=== PATIENT | female | born 1960 ===

== ENCOUNTER 2022-02-09 05:33 | Day surgery (SDC) | payer OTHER ==
[~2022-02-09 05:33] MED LIST: ATACAND16 MG PO; PEPCID AC20 MG PO; SINGULAIR10 MG PO; VITAMIN C PO
== END 2022-02-09 14:00 | disposition home or self-care (01) ==
LOC: CIR.AMB 05:33
PROVIDERS: ATTEND Otolaryngology Otology & Neurotology
DX: H72.92 Unspecified perforation of tympanic membrane, left ear (principal); H90.12 Conductive hearing loss, unilateral, left ear, with unrestricted hearing on the contralateral side; H66.92 Otitis media, unspecified, left ear; Z88.8 Allergy status to other drugs, medicaments and biological substances; Z88.6 Allergy status to analgesic agent; I10 Essential (primary) hypertension; Z20.822 Contact with and (suspected) exposure to COVID-19